=== PATIENT | female | born 1975 | race Two or more races ===

== ENCOUNTER 2023-02-11 18:32 | Emergency (ER) | payer OTHER ==
[~2023-02-11] VITALS: Ht 160 cm; Wt 61.2 kg
[2023-02-11] MEDS ORDERED: DOLOGEN CAPLET1 EACH PO (19:56)
[2023-02-11] MEDS ORDERED: ANALPRAM HC 2.530 GM RECTAL (19:56)
== END 2023-02-11 20:03 | disposition home or self-care (01) ==
LOC: ER 18:32
DX: K64.8 Other hemorrhoids (principal); Z88.6 Allergy status to analgesic agent; Z88.8 Allergy status to other drugs, medicaments and biological substances

== ENCOUNTER 2023-03-31 07:48 | Day surgery (SDC) | payer OTHER ==
[~2023-03-31 07:48] MED LIST: ANALPRAM HC 2.530 GM RECTAL; DOLOGEN CAPLET1 EACH PO
== END 2023-03-31 13:35 | disposition home or self-care (01) ==
LOC: AMB-ENDOS 07:48
PROVIDERS: ATTEND Colon & Rectal Surgery
DX: K57.30 Diverticulosis of large intestine without perforation or abscess without bleeding (principal); K62.5 Hemorrhage of anus and rectum; K64.8 Other hemorrhoids; R19.4 Change in bowel habit; Z20.822 Contact with and (suspected) exposure to COVID-19; Z88.6 Allergy status to analgesic agent